=== PATIENT | male | born 1960 | race Caucasian/White ===

== ENCOUNTER 2016-07-23 21:33 | Emergency (ER) | payer OTHER ==
[~2016-07-23] VITALS: Ht 154.9 cm; Wt 64.8 kg
[~2016-07-23 21:33] MED LIST: "\\\"BP MED\\\""; ACID CONTROL150 MG PO; AMLODIPINE BESYL5 MG; ANTI-DIARRHEA2 MG PO; ATORVASTATIN CA40 MG PO; Ativan PO; BACLOFEN10 MG PO; BACTRIM,SEPT1 TABLET PO; CATAPRES0.1 MG PO; CLEOCIN300 MG PO; CLONIDINE; CLONIDINE HCL0.1 MG PO; CLONIDINE HCL0.2 MG PO; Catapres PO; DESYREL100 MG PO; DIAZEPAM10 MG PO; DIAZEPAM5 MG PO; FIORICET 50-321 EAC1 PO; FORTAMET1000 MG PO; GLUCOPHAGE1000 MG PO; Glucophage PO; HYDROCHLOROTHIA25 MG PO; Hydrodiuril,Oretic,E PO; LAMICTAL25 MG PO; LISINOPRIL; LISINOPRIL40 MG PO; Lioresal PO; METFORMIN HCL1000 M1 PO; METFORMIN HCL1000 MG PO; METFORMIN HYDROC1 GM PO; METOPROLOL PO; METOPROLOL TART50 MG; METOPROLOL TART50 MG PO; MIRALAX255 GM PO; NABUMETONE750 M1 PO; NABUMETONE750 MG PO; NORCO 5/3251 TABLET PO; NORVASC5 MG PO; OMEPRAZOLE20 MG PO; OXYCODONE-APAP1 EAC6 PO; PAROXETINE HCL10 MG PO; PERCOCET 10/1 TABLET PO; PERCOCET 5/31 TABLET PO; PERCOCET 7.5-31 EACH PO; PERCOCET 7.5-51 EACH PO; PERCOCET 7.51 TABLET PO; PRILOSEC20 MG PO; PRINIVIL40 MG PO; PROAIR HFA8.5 GM IH; Percocet 7.5/325,End PO; Protonix PO; RELAFEN; TOPROL XL50 MG PO; TRAMADOL HCL50 MG PO; TYLENOL WITH C1 EACH PO; Toprol XL PO; ULTRAM50 MG PO; UNABLEOBTAIN; VALIUM10 MG PO; VALIUM5 MG PO; VICODIN; ZESTRIL,PRINIVI40 MG PO; Zestril,Prinivil PO; [UNRECOGNIZED DRUG - CODE]; [UNRECOGNIZED DRUG - OTHER]; [UNRECOGNIZED DRUG - REMARK]; [UNRECOGNIZED DRUG - REMARK]
[2016-07-24] MEDS ORDERED: FIORICET 50-301 EACH PO (00:52)
[2016-07-24 01:05] VITALS: BP 136/89
== END 2016-07-24 01:07 | disposition home or self-care (01) ==
LOC: EME 21:33
DX: R51 Headache (principal); E11.9 Type 2 diabetes mellitus without complications; E78.5 Hyperlipidemia, unspecified; I10 Essential (primary) hypertension; I25.2 Old myocardial infarction; K21.9 Gastro-esophageal reflux disease without esophagitis; G89.29 Other chronic pain; Z98.1 Arthrodesis status; Z79.84 Long term (current) use of oral hypoglycemic drugs; F17.200 Nicotine dependence, unspecified, uncomplicated
CPT/HCPCS: 99281; 99284

== ENCOUNTER 2017-01-08 17:43 | Emergency (ER) | payer OTHER ==
[~2017-01-08] VITALS: Ht 154.9 cm; Wt 62.1 kg
[~2017-01-08 17:43] MED LIST changes: +FIORICET 50-301 EACH PO
[2017-01-08 18:54] LABS: BASOPHIL COUNT 0.1 K/uL (0-0.1); EOSINOPHIL (%) 1.8 % (0-5); EOSINOPHIL COUNT 0.2 K/uL (0-0.3); IMMATURE GRANULOCYTE (%) 0.2 % (0.0-0.7); INSTRUMENT ABS NEUTROPHIL CT 6.5 K/uL; LYMPHOCYTE COUNT 2.6 K/uL (1.0-2.8); MCH 30.7 PG (29.0-34.0); MCHC 34.1 G/DL (30.0-36.0); MCV 90.1 FL (86-99); MEAN PLAT.VOLUME 10.9 uM^3 (9.0-12.4); MONOCYTE (%) 6.7 % (3-12); MONOCYTE COUNT 0.7 K/uL (0-0.8); NEUTROPHIL (%) 64.7 % (45-76); NEUTROPHIL COUNT 6.5 K/uL (1.8-6.4); PLATELET COUNT 195 K/uL (156-360); RBC DIS.WIDTH-CV 12.6 % (11.8-14.6); RBC DIS.WIDTH-SD 41.7 % (39-53); RED BLOOD COUNT 4.33 M/uL (4.00-5.50)
[2017-01-08 19:05] LABS: CHLORIDE 105 mEq/L (99-109); POTASSIUM 3.2 mEq/L (3.7-5.4)
[2017-01-08 19:06] LABS: SODIUM 140 mEq/L (136-147)
[2017-01-08 19:08] LABS: GLUCOSE 120 mg/dL (70-99)
[2017-01-08 19:09] LABS: ANION GAP 11 MEQ/L (2-14)
[2017-01-08 19:10] LABS: TOTAL BILIRUBIN 0.3 mg/dL (0.0-1.0)
[2017-01-08 19:11] LABS: ALKALINE PHOSPHATASE 118 IU/L (3-129)
[2017-01-08 19:12] LABS: GFR ESTIMATE (CALCULATED) 44 mL/min/
[2017-01-08 19:13] LABS: DIRECT BILIRUBIN 0.2 mg/dL (0.0-0.3); UREA NITROGEN (BUN) 29 mg/dL (9-23)
[2017-01-08 19:15] LABS: TROP-I INTERPRETATION NEGATIVE; TROPONIN-I < 0.01 ng/mL (0.0-0.30)
[2017-01-08 22:05] VITALS: BP 92/54
== END 2017-01-08 22:25 | disposition home or self-care (01) ==
LOC: EME 17:43
PROVIDERS: Emergency Medicine
DX: R53.1 Weakness (principal); R41.0 Disorientation, unspecified; I25.2 Old myocardial infarction; K21.9 Gastro-esophageal reflux disease without esophagitis; I10 Essential (primary) hypertension; E78.5 Hyperlipidemia, unspecified; E11.9 Type 2 diabetes mellitus without complications; F32.9 Major depressive disorder, single episode, unspecified; G43.909 Migraine, unspecified, not intractable, without status migrainosus; Z88.0 Allergy status to penicillin; F17.200 Nicotine dependence, unspecified, uncomplicated
CPT/HCPCS: 70450; 71020; 80048; 80076; 84484; 85025; 99281; 99285

== ENCOUNTER 2017-03-19 19:52 | Emergency (ER) | payer OTHER ==
[~2017-03-19] VITALS: Ht 154.9 cm; Wt 59.3 kg
[2017-03-19 20:45] LABS: ADD MIUA? YES; BILIRUBIN NEGATIVE; BLOOD NEGATIVE; COLOR AMBER ((YELLOW)); GLUCOSE (STRIP) NEGATIVE; KETONES 5; LEUKOCYTES NEGATIVE; NITRITE NEGATIVE; PROTEIN (STRIP) 100; SPECIFIC GRAVITY 1.024 (1.000-1.030)
[2017-03-19 20:50] LABS: HEMATOCRIT 41.4 % (38.0-50.0); MCH 31.4 PG (29.0-34.0); MCHC 34.8 G/DL (30.0-36.0); MCV 90.2 FL (86-99); MEAN PLAT.VOLUME 10.8 uM^3 (9.0-12.4); PLATELET COUNT 291 K/uL (156-360); RBC DIS.WIDTH-CV 13.4 % (11.8-14.6); RBC DIS.WIDTH-SD 44.3 % (39-53); RED BLOOD COUNT 4.59 M/uL (4.00-5.50); WHITE BLOOD COUNT 13.8 K/uL (4.1-10.2)
[2017-03-19 20:57] LABS: BACTERIA RARE /HPF; EPITHELIAL CELLS RARE /HPF; HYALINE CASTS 30-40 /LPF; MUCUS 1+ /LPF; RED BLOOD CELLS 0-5 /HPF (0-5); UCUL ADDED? NO; WHITE BLOOD CELLS 0-5 /HPF (0-5)
[2017-03-19 21:00] LABS: CHLORIDE 102 mEq/L (99-109); SODIUM 139 mEq/L (136-147)
[2017-03-19 21:02] LABS: GLUCOSE 152 mg/dL (70-99)
[2017-03-19 21:04] LABS: ANION GAP 18 MEQ/L (2-14); TOTAL BILIRUBIN 0.7 mg/dL (0.0-1.0)
[2017-03-19 21:06] LABS: ALKALINE PHOSPHATASE 111 IU/L (3-129); GFR ESTIMATE (CALCULATED) 48 mL/min/
[2017-03-19 21:07] LABS: UREA NITROGEN (BUN) 29 mg/dL (9-23)
[2017-03-19 21:09] LABS: LIPASE 116 U/L (1.0-51.0)
[2017-03-19] MEDS ORDERED: ZOFRAN ODT4 MG PO (22:30)
[2017-03-20 00:21] LABS: CHLORIDE 104 mEq/L (99-109); POTASSIUM 3.5 mEq/L (3.7-5.4); SODIUM 140 mEq/L (136-147)
[2017-03-20 00:23] LABS: GLUCOSE 110 mg/dL (70-99)
[2017-03-20 00:24] LABS: ANION GAP 14 MEQ/L (2-14)
[2017-03-20 00:26] LABS: GFR ESTIMATE (CALCULATED) 56 mL/min/
[2017-03-20 00:27] LABS: UREA NITROGEN (BUN) 24 mg/dL (9-23)
[2017-03-20 00:33] VITALS: BP 138/72
== END 2017-03-20 00:34 | disposition home or self-care (01) ==
LOC: EME 19:52 → EXP 19:52
PROVIDERS: Physician Assistant
DX: R10.84 Generalized abdominal pain (principal); R19.7 Diarrhea, unspecified; E87.6 Hypokalemia; R11.0 Nausea; E87.2 Acidosis; K86.1 Other chronic pancreatitis; I10 Essential (primary) hypertension; E78.5 Hyperlipidemia, unspecified; E11.9 Type 2 diabetes mellitus without complications; Z79.84 Long term (current) use of oral hypoglycemic drugs; F17.200 Nicotine dependence, unspecified, uncomplicated
CPT/HCPCS: 74177; 80048 91; 80053; 81003; 83690; 85027; 99281; 99285; J2405; J3010; J7030

== ENCOUNTER 2017-07-02 19:10 | Emergency (ER) | payer OTHER ==
[~2017-07-02] VITALS: Ht 154.9 cm; Wt 68.0 kg
[~2017-07-02 19:10] MED LIST changes: +ZOFRAN ODT4 MG PO
[2017-07-02 23:57] LABS: HEMATOCRIT 37.4 % (38.0-50.0); HEMOGLOBIN 12.5 G/DL (12.5-16.6); MCH 31.3 PG (29.0-34.0); MCHC 33.4 G/DL (30.0-36.0); MCV 93.7 FL (86-99); PLATELET COUNT 212 K/uL (156-360); RBC DIS.WIDTH-CV 12.5 % (11.8-14.6); RBC DIS.WIDTH-SD 43.5 % (39-53); RED BLOOD COUNT 3.99 M/uL (4.00-5.50); WHITE BLOOD COUNT 14.5 K/uL (4.1-10.2)
[2017-07-03 00:05] LABS: ALBUMIN 4.2 g/dL (3.2-4.8); CHLORIDE 103 mEq/L (99-109); POTASSIUM 4.4 mEq/L (3.7-5.4); SODIUM 138 mEq/L (136-147)
[2017-07-03 00:08] LABS: GLUCOSE 90 mg/dL (70-99); TOTAL PROTEIN 7.7 g/dL (6.4-8.3)
[2017-07-03 00:09] LABS: TOTAL BILIRUBIN 0.3 mg/dL (0.0-1.0)
[2017-07-03 00:11] LABS: ALKALINE PHOSPHATASE 86 IU/L (3-129); CREATININE 0.9 mg/dL (0.6-1.3); GFR ESTIMATE (CALCULATED) > 59 mL/min/ (58.99-99999)
[2017-07-03 00:12] LABS: UREA NITROGEN (BUN) 20 mg/dL (9-23)
[2017-07-03 00:13] LABS: AST (GOT) 18 IU/L (2-34)
[2017-07-03 00:14] LABS: ALT (GPT) 15 IU/L (3-49)
[2017-07-03 00:15] LABS: LIPASE 72 U/L (1.0-51.0)
[2017-07-03 00:55] LABS: APPEARANCE CLEAR ((CLEAR)); BILIRUBIN NEGATIVE; BLOOD SMALL; COLOR STRAW ((YELLOW)); GLUCOSE (STRIP) NEGATIVE; KETONES NEGATIVE; LEUKOCYTES NEGATIVE; NITRITE NEGATIVE; PROTEIN (STRIP) NEGATIVE; SPECIFIC GRAVITY 1.008 (1.000-1.030); UROBILINOGEN 0.2 MG/DL (0.2-1.0)
[2017-07-03 01:02] LABS: BACTERIA NONE SEEN /HPF; EPITHELIAL CELLS NONE SEEN /HPF; MUCUS NONE SEEN /LPF; RED BLOOD CELLS 0-5 /HPF (0-5); UCUL ADDED? NO; WHITE BLOOD CELLS NONE SEEN /HPF (0-5)
[2017-07-03] MEDS ORDERED: NAPROSYN500 MG PO (01:33)
[2017-07-03] MEDS ORDERED: MEDROL DOSEPAK4 MG PO (01:33)
[2017-07-03 01:52] VITALS: BP 158/99
== END 2017-07-03 01:52 | disposition home or self-care (01) ==
LOC: EME 19:10
PROVIDERS: Emergency Medicine
DX: M54.9 Dorsalgia, unspecified (principal); E11.9 Type 2 diabetes mellitus without complications; I10 Essential (primary) hypertension; K21.9 Gastro-esophageal reflux disease without esophagitis; E78.5 Hyperlipidemia, unspecified; I25.2 Old myocardial infarction; F41.9 Anxiety disorder, unspecified; F32.9 Major depressive disorder, single episode, unspecified; F17.200 Nicotine dependence, unspecified, uncomplicated; Z79.84 Long term (current) use of oral hypoglycemic drugs; Z79.891 Long term (current) use of opiate analgesic; Z79.1 Long term (current) use of non-steroidal anti-inflammatories (NSAID); Z85.9 Personal history of malignant neoplasm, unspecified; Z88.0 Allergy status to penicillin; Z88.5 Allergy status to narcotic agent
CPT/HCPCS: 74176; 80053; 81003; 82948; 83690; 85027; 99281; 99283

== ENCOUNTER 2017-08-08 13:39 | Observation (INO) | payer OTHER ==
[~2017-08-08] VITALS: Ht 154.9 cm; Wt 67.9 kg
[~2017-08-08 13:39] MED LIST changes: +MEDROL DOSEPAK4 MG PO; +NAPROSYN500 MG PO; -PAROXETINE HCL10 MG PO; +PAXIL20 MG PO; -VALIUM10 MG PO
[2017-08-08 14:32] LABS: HEMATOCRIT 34.9 % (38.0-50.0); HEMOGLOBIN 11.7 G/DL (12.5-16.6); MCHC 33.5 G/DL (30.0-36.0); MCV 92.6 FL (86-99); PLATELET COUNT 228 K/uL (156-360); RBC DIS.WIDTH-CV 12.7 % (11.8-14.6); RBC DIS.WIDTH-SD 43.1 % (39-53); RED BLOOD COUNT 3.77 M/uL (4.00-5.50); WHITE BLOOD COUNT 11.6 K/uL (4.1-10.2)
[2017-08-08 14:50] LABS: CHLORIDE 105 MEQ/L (99-109); SODIUM 138 MEQ/L (136-147)
[2017-08-08 14:56] LABS: CREATININE 1.4 MG/DL (0.6-1.3); GFR ESTIMATE (CALCULATED) 56 mL/min/ (58.99-99999); GLUCOSE 185 mg/dL (70-99); UREA NITROGEN (BUN) 31 mg/dL (9-23)
[2017-08-08 17:41] LABS: ALBUMIN 3.7 G/DL (3.2-4.8); DIRECT BILIRUBIN 0.1 mg/dL (0.0-0.3); TOTAL BILIRUBIN 0.2 MG/DL (0.0-1.0)
[2017-08-08 17:46] LABS: ALKALINE PHOSPHATASE 83 IU/L (3-129); ALT (GPT) 11 IU/L (3-49); AST (GOT) 14 IU/L (2-34); TOTAL PROTEIN 7.6 G/DL (6.4-8.3)
[2017-08-08 18:23] LABS: APPEARANCE CLEAR ((CLEAR)); BILIRUBIN NEGATIVE; BLOOD NEGATIVE; COLOR YELLOW ((YELLOW)); GLUCOSE (STRIP) NEGATIVE; KETONES NEGATIVE; LEUKOCYTES NEGATIVE; NITRITE NEGATIVE; PROTEIN (STRIP) NEGATIVE; SPECIFIC GRAVITY 1.017 (1.000-1.030); UCUL ADDED? NO; UROBILINOGEN 0.2 MG/DL (0.2-1.0)
[2017-08-08] MEDS ORDERED: ELAVIL10 MG PO (21:04)
[2017-08-08] MEDS ORDERED: OXYCONTIN15 MG PO (21:05)
[2017-08-08] MEDS ORDERED: PROTONIX40 MG PO (21:05)
[2017-08-08] MEDS ORDERED: BUSPAR5 MG PO (21:05)
[2017-08-08] MEDS ORDERED: VALIUM10 MG PO (21:06)
[2017-08-08] MEDS ORDERED: ARICEPT10 MG PO (21:06)
[2017-08-08] MEDS ORDERED: NEURONTIN400 MG PO (21:07)
[2017-08-08] MEDS ORDERED: AMBIEN5 MG PO (21:07)
[2017-08-08 22:15] VITALS: BP 117/60; BP 131/77; BP 134/65
[2017-08-08 22:30] VITALS: BP 141/97
[2017-08-09 03:59] VITALS: BP 101/52
[2017-08-09 06:30] LABS: BASOPHIL (%) 0.8 % (0-1); BASOPHIL COUNT 0.1 K/uL (0-0.1); EOSINOPHIL COUNT 0.5 K/uL (0-0.3); HEMATOCRIT 32.5 % (38.0-50.0); HEMOGLOBIN 10.8 G/DL (12.5-16.6); IMMATURE GRANULOCYTE (%) 0.1 % (0.0-0.7); LYMPHOCYTE (%) 48.2 % (15-42); LYMPHOCYTE COUNT 4.7 K/uL (1.0-2.8); MCH 30.9 PG (29.0-34.0); MCHC 33.2 G/DL (30.0-36.0); MCV 93.1 FL (86-99); NEUTROPHIL (%) 35.9 % (45-76); NEUTROPHIL COUNT 3.5 K/uL (1.8-6.4); PLATELET COUNT 197 K/uL (156-360); RBC DIS.WIDTH-CV 12.6 % (11.8-14.6); RBC DIS.WIDTH-SD 43.5 % (39-53); RED BLOOD COUNT 3.49 M/uL (4.00-5.50); WHITE BLOOD COUNT 9.7 K/uL (4.1-10.2)
[2017-08-09 06:44] LABS: TROP-I INTERPRETATION NEGATIVE; TROPONIN-I 0.03 ng/mL (0.0-0.30)
[2017-08-09 07:03] LABS: CHLORIDE 106 MEQ/L (99-109); CREATININE 1.1 MG/DL (0.6-1.3); GFR ESTIMATE (CALCULATED) > 59 mL/min/ (58.99-99999); GLUCOSE 133 mg/dL (70-99); POTASSIUM 3.6 MEQ/L (3.7-5.4); SODIUM 139 MEQ/L (136-147); UREA NITROGEN (BUN) 24 mg/dL (9-23)
[2017-08-09 07:26] VITALS: BP 126/64
[2017-08-09 13:35] VITALS: BP 130/70
[2017-08-09 13:49] LABS: HDL CHOLESTEROL 38 MG/DL (Desirable>=40); LDL CHOLESTEROL 58 mg/dL (Desirable<100); NON-HDL CHOLESTEROL 84 mg/dL (Desirable<160); TOTAL CHOLESTEROL 122 mg/dL (Desirable<200); TRIGLYCERIDES 130 MG/DL (Normal: <150)
[2017-08-09 15:36] VITALS: BP 111/56
== END 2017-08-09 17:01 | disposition home or self-care (01) ==
LOC: EME 13:39 → 5WEST 21:11 → ENRESERV 21:13 → EDOF 21:34 → 5WEST 22:15
PROVIDERS: Family Medicine; Physician Assistant
DX: R55 Syncope and collapse (principal); I25.10 Atherosclerotic heart disease of native coronary artery without angina pectoris; R07.9 Chest pain, unspecified; I10 Essential (primary) hypertension; E78.2 Mixed hyperlipidemia; Z91.81 History of falling; G89.29 Other chronic pain; Z79.891 Long term (current) use of opiate analgesic; Z98.1 Arthrodesis status; E11.9 Type 2 diabetes mellitus without complications; F41.9 Anxiety disorder, unspecified; F32.9 Major depressive disorder, single episode, unspecified; K21.9 Gastro-esophageal reflux disease without esophagitis; K22.70 Barrett's esophagus without dysplasia; J43.9 Emphysema, unspecified; F17.200 Nicotine dependence, unspecified, uncomplicated; G51.0 Bell's palsy; Z98.890 Other specified postprocedural states; Z88.0 Allergy status to penicillin; Z88.5 Allergy status to narcotic agent; F10.11 Alcohol abuse, in remission; Z82.49 Family history of ischemic heart disease and other diseases of the circulatory system; Z79.84 Long term (current) use of oral hypoglycemic drugs
CPT/HCPCS: 70450; 71046; 72125; 80048; 80061; 80076; 81003; 82948; 84484; 85025; 85027; 93005; 94640; 99202; 99281; 99283; G0378; J1650; J1815